=== PATIENT | male | born 1950 | race Caucasian/White ===

== ENCOUNTER 2020-04-03 07:42 | Outpatient (CLI) | payer MEDICARE, SELFPAY ==
--- NOTE | ~2020-04-03 | MR_ITS ---
EXAMINATION: MR lumbar spine wo con DATE: 04/03/2020 08:54 INDICATION: Lumbar radiculopathy. TECHNIQUE: Magnetic resonance imaging (MRI) of the lumbar spine was performed without intravenous con trast. Sequences included sagittal T2-weighted FSE, sagittal T2-weighted FS FSE, sagittal T1-weighted FSE, and axial T2-weighted FSE. COMPARISON: Lumbar spine MRI 08/04/2017 FINDINGS: There is 7 degrees levocurvature of lumbar spine. Vertebral body heights are normal. There is mildly decreased disc height at L2-L3, moderately decreased disc height at L3-L4, severely decreas ed disc height at L4-L5, and mildly decreased disc height at L5-S1. Epidural lipomatosis is noted. Th ere is ligamentum flavum hypertrophy at the disc levels from L2-L3 through L5-S1. The distal spinal c ord signal intensity is normal. The conus medullaris is at L1. There are peripelvic cysts in left kid marcia. The following disc levels are specifically discussed: L1-L2: The disc is bulging and has an annular fissure. There is moderate bilateral facet joint osteoa rthritis. There is mild bilateral neural foraminal stenosis. There is mild central canal stenosis. L2-L3: The disc is bulging and has an annular fissure. There is severe bilateral facet joint osteoart hritis. There is moderate bilateral neural foraminal stenosis. There is moderate central canal stenos is. L3-L4: The disc is bulging and has an annular fissure. There is severe bilateral facet joint osteoart hritis. There is moderate bilateral neural foraminal stenosis. There is severe central canal stenosis . L4-L5: The disc is bulging and has an annular fissure. There is severe bilateral facet joint osteoart hritis. There is moderate bilateral neural foraminal stenosis. There is mild central canal stenosis. L5-S1: The disc is bulging and has an annular fissure. There is severe bilateral facet joint osteoart hritis. There is mild bilateral neural foraminal stenosis. There is mild central canal stenosis. IMPRESSION: 1. Severe lumbar spondylosis, stable from 08/04/2017 Reviewed, dictated and finalized at location A.
== END 2020-04-03 07:43 | disposition home or self-care (01) ==
PROVIDERS: PCP Internal Medicine
DX: M47.26 Other spondylosis with radiculopathy, lumbar region (principal)
CPT/HCPCS: 72148

== ENCOUNTER 2020-05-07 08:26 | Outpatient (CLI) | payer MEDICARE, SELFPAY ==
--- NOTE | ~2020-05-07 | CT_ITS ---
EXAMINATION: CT lumbar spine wo con DATE: 05/07/2020 08:52 INDICATION: Lumbar radiculopathy. TECHNIQUE: Computed tomography (CT) of the lumbar spine was performed without intravenous contrast. A utomated exposure control and iterative reconstruction technique were employed. The dose-length produ ct was 1302.41 mGy-cm. COMPARISON: Lumbar spine MRI 04/03/2020 FINDINGS: There is 4 degrees levocurvature of lumbar spine. Vertebral body heights are normal. There is mildly decreased disc height at L2-L3, moderately decreased disc height at L3-L4, severely decreas ed disc height at L4-L5, and moderately decreased disc height at L5-S1. There is a 3.2 cm fusiform an eurysm of infrarenal aorta. The following disc levels are specifically discussed: L1-L2: The disc is bulging. There is moderate right and severe left facet joint osteoarthritis. There is mild bilateral neural foraminal stenosis. There is mild central canal stenosis. L2-L3: The disc is bulging. There is severe bilateral facet joint osteoarthritis. There is moderate b ilateral neural foraminal stenosis. There is moderate central canal stenosis. L3-L4: The disc is bulging. There is severe bilateral facet joint osteoarthritis. There is moderate b ilateral neural foraminal stenosis. There is severe central canal stenosis. L4-L5: The disc is bulging. There is severe bilateral facet joint osteoarthritis. There is moderate b ilateral neural foraminal stenosis. There is mild central canal stenosis. L5-S1: The disc is bulging. There is severe bilateral facet joint osteoarthritis. There is mild bilat eral neural foraminal stenosis. There is mild central canal stenosis. IMPRESSION: 1. Stable severe lumbar spondylosis. 2. 3.2 cm fusiform aneurysm of infrarenal aorta. Reviewed, dictated and finalized at location A.
== END 2020-05-07 08:27 | disposition home or self-care (01) ==
PROVIDERS: PCP Internal Medicine
DX: M47.26 Other spondylosis with radiculopathy, lumbar region (principal); I70.1 Atherosclerosis of renal artery
CPT/HCPCS: 72131

== ENCOUNTER 2020-11-28 08:51 | Outpatient (CLI) | payer MEDICARE, SELFPAY ==
--- NOTE | ~2020-11-28 | DEXA_ITS ---
Bone Density Report Name: Mega Fairchild Age: 70 Sex: Male Ethnicity: White Date of : 1950 Indication: height loss; Referring Provider: Gabriel*Kory Vallejo Study: Bone densitometry was performed. Exam Date: November 28, 2020 Accession number: [id number] Bone Density: Region BMD T-score Z-score Classification AP Spine (L1, L2) 1.173 1.1 2.0 Normal Femoral Neck (Left) 0.867 -0.5 0.8 Normal Total Hip (Left) 1.174 0.9 1.7 Normal Total Hip Bilateral Avg 1.141 0.7 1.5 Normal Femoral Neck (Right) 0.821 -0.8 0.4 Normal Total Hip (Right) 1.107 0.5 1.2 Normal World Health Organization criteria for BMD impression classify patients as: Normal (T-score at or above -1.0), Osteopenia (T-score between -1.0 and -2.5), or Osteoporosis (T-score at or below -2.5). 10-year Fracture Risk: FRAX not reported because: All T-scores for Spine Total, Hip Total, Femoral Neck at or above -1.0 Previous Exams: Region Exam Age BMD T-score BMD Change BMD Change Date g/cm2 vs Baseline vs Previous AP Spine(L1, L2) 11/28/2020 70 1.173 1.1 0.091(8.4%)* 0.091(8.4%)* 11/03/2018 68 1.082 0.3 Total Hip(Left) 11/28/2020 70 1.174 0.9 0.030(2.6%)* 0.030(2.6%)* 11/03/2018 68 1.144 0.7 Total Hip(Right) 11/28/2020 70 1.107 0.5 0.000(0.0%) 0.000(0.0%) 11/03/2018 68 1.107 0.5 *Denotes significance at 95% confidence level, LSC for AP Spine = 0.022 g/cm2, LSC for Total Hip = 0.027 g/cm2 Clinical Information Provided by Patient: Patient maximum height was 70 No regular weight bearing exercise Drinks caffeinated beverages Impression: The patient has normal bone mass. No significant bone loss was observed. Discussion: BONE DENSITY IS ABOVE THE MINIMUM DESIRABLE LEVEL AT ALL SKELETAL SITES TESTED. This patient?s bone mineral density is above the minimum desirable level (T-score -1.0 or better) at all sites measured. The patient should follow a healthful lifestyle (good nutrition with adequate calcium and vitamin D, and appropriate weight-bearing exercise). Follow-Up: Consider repeating this study in 5 years or sooner if there is some new clinical indication. Reported by: SILVERIO on 11/28/2020 9:16:00 AM. Reviewed, dictated and finalized at location Alondra RAMIREZ
== END 2020-11-28 08:52 | disposition home or self-care (01) ==
LOC: ANHIMG 08:53
PROVIDERS: PCP Internal Medicine; Visit Provider Neurological Surgery
DX: M81.0 Age-related osteoporosis without current pathological fracture (principal)
CPT/HCPCS: 77080

== ENCOUNTER 2021-04-12 08:03 | Emergency (ER) | payer MEDICARE, SELFPAY ==
[2021-04-12 08:15] VITALS: BP 125/74; PULSE 73; RESP 18; TEMP 36.8; O2SAT 100
[2021-04-12 08:17] VITALS: BP 125/74; PULSE 73; RESP 18; TEMP 36.8; O2SAT 100
[2021-04-12] MEDS: predniSONE 20 MG TABLET 60 MG PO (08:31)
--- NOTE | 2021-04-12 08:31 | ED.SKABFB ---
HPI - Skin/Abscess/Foreign Bdy General Chief complaint: Skin/Abscess/Foreign Body Stated complaint: Swollen Hand Source: patient and RN notes reviewed Limitations: no limitations History of Present Illness HPI narrative: The patient, on several meds, presents with insect bite. Patient states he has a prior history of strong reactions to stings. He now has a shorter, couple day history of right, extensor hand redness and swelling that is mild, unrelieved with OTC Benadryl, that began after witnessed wasp sting. No redness, streaking, warmth, pain-but there is itching Related Data Home Medications Medication Instructions Recorded Confirmed omega-3 fatty acids 1,000 mg 1,000 mg PO DAILY 03/15/20 04/12/21 capsule zinc 50 mg tablet 50 mg PO DAILY 03/15/20 04/12/21 gabapentin 300 mg capsule 300 mg PO TID 03/27/20 04/12/21 tizanidine 2 mg capsule 2 mg PO TID 03/27/20 04/12/21 cholecalciferol (vitamin D3) 25 25 mcg PO DAILY 03/10/21 04/12/21 mcg (1,000 unit) capsule multivitamin 1 tablet PO DAILY 03/10/21 04/12/21 Allergies Allergy/AdvReac Type Severity Reaction Status Date / Time Penicillins Allergy Mild Rash Verified 04/12/21 08:14 Review of Systems Review of Systems: Narrative: General/Constitutional: No weight loss,fever Eyes: N0: Redness,discharge Ears/Nose/Throat: No: Epistaxis,ear discharge Respiratory: Denies: Hemoptysis Gastrointestinal: No Vomiting, Bleeding-rectal Skin: No Lumps REPORTS , eruption Neurologic: No Focal Weakness,Sz Hematologic: Denies: Petechiae/Purpura Psychiatric: No: Suicida ideationl All Other Systems: Reviewed and Negative [facility] Past Medical History Medical History Cataract (lens) fragments in eye following cataract surgery, bilateral Surgical History Surgical History Previous back surgery Family History Family History Father Patient's father is Social History Social History (Reviewed 03/10/21 @ 16:32 by SHANDA Mitchell Smoking status: Former smoker Second hand tobacco smoke exposure: No Smoking end date: 11/01/81 Alcohol intake: current Substance use: never Comments At time of signature, agree with nursing past medical, surgical, social and family history. There is no relevant family history pertinent to the presenting complaint. Exam Narrative: Exam Narrative: General Appearance: Well appearing, Conjunctiva clear Mouth/Throat: Normal appearing, Normal lips, Supple Respiratory: Airway patent, No respiratory distress Skin: Warm, Dry,; pink [not red], inflamed [not infected] extensor hand, with small puncta/ bite on extensor index finger proximally MS-hand: Normal strength (mostly intact, limited flexion/extension by edema, no tenderness ( extensor, with mild decreased ROM), Swelling (extensor), Other (no anterior drawer) Neurological: A&O x3, Normal affect Course Vital Signs Vital signs: Vital Signs Temperature 98.2 F 04/12/21 08:15 Pulse Rate 73 04/12/21 08:15 Respiratory Rate 18 04/12/21 08:15 Blood Pressure 125/74 04/12/21 08:15 Pulse Oximetry 100 04/12/21 08:15 Temperature 98.2 F 04/12/21 08:17 Pulse Rate 73 04/12/21 08:17 Respiratory Rate 18 04/12/21 08:17 Blood Pressure 125/74 04/12/21 08:17 Pulse Oximetry 100 04/12/21 08:17 Discharge Plan Discharge Clinical Impression: Pruritic condition Insect bite Qualifiers: Encounter type: initial encounter Site of insect bite: hand Laterality: left Qualified Code(s): S60.562A - Insect bite (nonvenomous) of left hand, initial encounter Patient Disposition: Home, Self-Care Condition: Stable Instructions: Insect Bite or Sting (ED) Additional Instructions: Stop meds, antibiotics if rash develops Prescriptions: New loratadine [Claritin]
[2021-04-12] MEDS: TETANUS,DIPHTHERIA,AC PERTUSSIS ADULT (0.5 ML) BOOSTRIX IM (08:40)
== END 2021-04-12 08:51 | disposition home or self-care (01) ==
PROVIDERS: Emergency Provider Emergency Medicine; PCP Internal Medicine
DX: S60.562A Insect bite (nonvenomous) of left hand, initial encounter (principal); W57.XXXA Bitten or stung by nonvenomous insect and other nonvenomous arthropods, initial encounter; Z87.891 Personal history of nicotine dependence; L29.9 Pruritus, unspecified
CPT/HCPCS: 90471; 90715; 99213; G0463; J7512

== ENCOUNTER 2021-06-27 10:00 | Outpatient (CLI) | payer MEDICARE, SELFPAY ==
[2021-06-27 10:36] LABS: Add Urine Microscopic? NO; Appearance Urine Clear (Clear); Bilirubin Urine Negative (Negative); Blood Urine Negative (Negative); Color Urine Yellow (Yellow); Glucose Urine UA Negative (Negative); Ketones Urine Negative (Negative); Leukocyte Esterase Ur Negative LEU/UL (Negative); Nitrate Urine Negative (Negative); Protein Urine Negative (Negative); Urobilinogen Urine Negative mg/dL (<2.0)
== END 2021-06-27 10:01 | disposition home or self-care (01) ==
PROVIDERS: PCP Internal Medicine; Visit Provider Internal Medicine
DX: R39.11 Hesitancy of micturition (principal)
CPT/HCPCS: 81003

== ENCOUNTER → 2021-07-03 05:06 | Outpatient (CLI) | payer MEDICARE, SELFPAY ==
[2021-07-03 19:18] LABS: SARS-CoV-2 RNA PCR Negative
== END ==
PROVIDERS: PCP Internal Medicine; Visit Provider Internal Medicine
DX: Z20.822 Contact with and (suspected) exposure to COVID-19 (principal)
CPT/HCPCS: C9803; U0003; U0005

== ENCOUNTER → 2022-01-16 04:59 | Outpatient (CLI) | payer MEDICARE, SELFPAY ==
[2022-01-16 12:52] LABS: SARS-CoV-2 RNA PCR Negative
== END ==
PROVIDERS: PCP Internal Medicine; Visit Provider Physician Assistant
DX: R68.89 Other general symptoms and signs (principal); Z20.822 Contact with and (suspected) exposure to COVID-19
CPT/HCPCS: C9803; U0003; U0005

== ENCOUNTER 2022-05-07 07:48 | Outpatient (CLI) | payer MEDICARE, SELFPAY ==
--- NOTE | ~2022-05-07 | US_ITS ---
EXAMINATION: US abdomen complete DATE: 05/07/2022 09:00 INDICATION: Unspecified abdominal pain TECHNIQUE: Multiple grayscale and Doppler ultrasound images of the abdomen were obtained. COMPARISON: 01/31/2018 FINDINGS: The head and body of the pancreas are normal. The pancreatic tail is obscured by bowel gas. The liver demonstrates increased echogenicity, heterogenous echotexture, and decreased through trans mission. There is a 2.2 cm cyst of the liver. No surface nodularity. Normal hepatopetal flow in the m ain portal vein. The gallbladder is normal with no abnormal wall thickening, pericholecystic fluid or stones. The normal common bile duct measures 6 mm. There was no sonographic Day sign. The visuali zed portions of the inferior vena cava are normal. There is a 3.1 cm fusiform aneurysm of the infrare nal abdominal aorta. The right kidney measures 14.0 x 6.1 x 6.1 cm. The left kidney measures 13.1 x 4.9 x 4.8 cm. The kidn eys demonstrate normal parenchymal echogenicity. There is no hydronephrosis. The spleen is normal in appearance and measures 11.9 cm. IMPRESSION: 1. No sonographic correlate for the patient's symptoms. 2. 3.1 cm fusiform infrarenal abdominal aortic aneurysm. Reviewed, dictated and finalized at location B.
== END 2022-05-07 07:49 | disposition home or self-care (01) ==
PROVIDERS: PCP Internal Medicine; Visit Provider Internal Medicine
DX: R10.9 Unspecified abdominal pain (principal); I71.4 Abdominal aortic aneurysm, without rupture
CPT/HCPCS: 76700

== ENCOUNTER 2022-09-30 08:12 | Outpatient (CLI) | payer MEDICARE, SELFPAY ==
--- NOTE | ~2022-09-30 | NM_ITS ---
EXAMINATION: NM lauren stress w perfusion DATE: 09/30/2022 11:20 [employer]ADCASTING [employer]CH[employer]IC INDICATION: History of coronary artery disease. TECHNIQUE: Rest images were obtained following intravenous administration of 10.5 mCi Tc99m tetrofosm in (Myoview). The patient was infused intravenously with Lexiscan (regadenoson). Then, 32.8 mCi Tc99m tetrofosmin (Myoview) was administered intravenously, and stress images were obtained. Data was jenny nstructed into short axis and horizontal and vertical long axis SPECT images. Gated SPECT images were also obtained. COMPARISON: None. FINDINGS: There is no definite reversible or fixed perfusion abnormality to suggest ischemia or infar ction. There is no segmental wall motion abnormality. Left ventricular ejection fraction measures 5 8%. IMPRESSION: 1. No definite ischemia or infarct. 2. Mildly decreased left ventricular ejection fraction measuring 58%. Reviewed, dictated and finalized at location A. 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
--- NOTE | 2022-09-30 09:23 | EST_ITS ---
Patient Info Name: Mega Fairchild Age: 72 years : 1950 Gender: Male Ht: 70 in Wt: 245 lbs BSA: 2.38 m2 Exam Date: 09/30/2022 9:28 AM Exam Location: [facility] Stress Patient Status: Outpatient Admit Date: 09/30/2022 Staff Ordering Physician: Agustin Tamayo DO Attending Provider: Agustin Tamayo DO Exercise Technologist: Abram Day RDCS, RT Exercise Physician: Christopher Hernandez DO Exam Type: CA stress lauren w NM Study Info A regadenoson stress test was performed. Summary 1. 1. Negative lexiscan stress test for ischemic ST changes by ECG criteria. 2. 2. Stable hemodynamics throughout the test. 3. 3. Nuclear scan to follow and will be reported separately. Please correlate with it. 4. 4. Patient informed of the above results. Protocol: Lexiscan Stress ECG Details Stage: REST Duration (min): 1 min : 16 sec HR (bpm): 59 SBP (mmHg): 106 DBP (mmHg): 67 Stage: REST Duration (min): 11 min : 21 sec HR (bpm): 62 SBP (mmHg): 106 DBP (mmHg): 67 Stage: STAGE 1 Duration (min): 1 min : 0 sec HR (bpm): 64 SBP (mmHg): 124 DBP (mmHg): 82 Stage: RECOVERY Duration (min): 1 min : 0 sec HR (bpm): 78 SBP (mmHg): 124 DBP (mmHg): 82 Stage: RECOVERY Duration (min): 2 min : 0 sec HR (bpm): 72 SBP (mmHg): 124 DBP (mmHg): 82 Stage: RECOVERY Duration (min): 3 min : 0 sec HR (bpm): 72 SBP (mmHg): 114 DBP (mmHg): 76 Stage: RECOVERY Duration (min): 3 min : 15 sec HR (bpm): 72 SBP (mmHg): 114 DBP (mmHg): 76 Rest HR: 62 bpm Peak HR: 79 bpm Rest Sys BP: 106 mmHg Peak Sys BP: 124 mmHg Max Pred HR: 146 bpm % Max Pred HR: 54 % Target HR: 124 bpm Max RPP: 9,796 bpm*mmHg Termination Reason: Completed protocol Cardiac Symptoms: Shortness of breath Total Time: 1 min : 0 sec Rest Olguin BP: 67 mmHg Peak Olguin BP: 82 mmHg Total Dose: 0.4 mg Resting ECG Sinus rhythm, RBBB. Stress ECG No ST changes. Arrhythmias None. Report Signatures
== END 2022-09-30 08:13 | disposition home or self-care (01) ==
PROVIDERS: PCP Internal Medicine; Visit Provider Internal Medicine
DX: Z01.810 Encounter for preprocedural cardiovascular examination (principal); Z86.79 Personal history of other diseases of the circulatory system
CPT/HCPCS: 78452; 93017; A9502; J2785

== ENCOUNTER 2023-01-04 00:18 | Day surgery (SDC) | payer MEDICARE, SELFPAY ==
[2022-12-23 13:33] VITALS: BMI 35.2
[2023-01-04 09:26] VITALS: BP 149/89; PULSE 80; RESP 18; TEMP 36.6; O2SAT 97; BMI 36.9
--- NOTE | 2023-01-04 09:35 | WPDANESEPPF ---
Anes - Initial Pre Proc Eval Procedure: Operation Date: 01/04/23 10:30 Proposed Procedures p Screening Colonoscopy - Jhony Marvin MD Date/Time: 01/04/23 09:35 Surgeon: Jhony Marvin MD Pre Op Diagnosis: hx colon polyps Patient Data Age: 72 Gender: M Height: 1.78 m Weight: 116.7 kg Last Vital Signs Temp 36.6 C 01/04/23 09:26 Pulse 80 01/04/23 09:26 Resp 18 01/04/23 09:26 BP 149/89 H 01/04/23 09:26 Pulse Ox 97 01/04/23 09:26 O2 Del Method Room Air 01/04/23 09:26 Allergies Allergy/AdvReac Type Severity Reaction Status Date / Time Penicillins Allergy Mild Rash Verified 01/04/23 09:24 Home Medications Medication Instructions Recorded Confirmed Type omega-3 fatty acids 1,000 mg 1,000 mg PO DAILY 03/15/20 01/04/23 History capsule (Fish Oil Concentrate) zinc 50 mg tablet 50 mg PO DAILY 03/15/20 01/04/23 History tizanidine 2 mg capsule 2 mg PO DAILY 03/27/20 01/04/23 History cholecalciferol (vitamin D3) 25 25 mcg PO DAILY 03/10/21 01/04/23 History mcg (1,000 unit) capsule multivitamin 1 tablet PO DAILY 03/10/21 01/04/23 History nitroglycerin 0.4 mg sublingual 0.4 mg sublingual Q5M PRN chest 03/10/21 01/04/23 Rx tablet (Nitrostat) pain #30 tabs simvastatin 40 mg tablet 40 mg PO DAILY #90 tabs 08/20/22 01/04/23 Rx aspirin 81 mg tablet,delayed 81 mg PO DAILY 10/21/22 01/04/23 History release (Adult Low Dose Aspirin) pantoprazole 40 mg tablet,delayed 40 mg PO QAM #90 tabs 11/18/22 01/04/23 Rx release (Protonix) metoprolol tartrate 25 mg tablet 25 mg PO BID #180 tabs 12/02/22 01/04/23 Rx Patient hx anesthesia problems: none Family hx anesthesia problems: none Results Review: All pre-operative results and documents have been reviewed as part of the pre-operative evaluation. [facility] Past Medical History Medical History (Updated 01/04/23 @ 09:38 by Miguel Ángel Romero MD) AAA (abdominal aortic aneurysm) Cataract (lens) fragments in eye following cataract surgery, bilateral Hx of myocardial infarction Obesity, Class II, BMI 35-39.9 Pure hypercholesterolemia Surgical History Surgical History Previous back surgery Family History Family History Father Patient's father is Social History Social History (Updated 10/21/22 @ 09:16 by Anisa Napier MA) Smoking status: Never smoker Second hand tobacco smoke exposure: No Smoking end date: 11/01/81 Alcohol intake: current Drinks per week: 10 Substance use: never Substance use type: does not use Lack of Transportation: No Lack of Food: Never True Current Housing: I Have Housing Concerned About Future Housing: No Difficulty Paying Gas/Electric Bills: No Difficulty Paying for Meds: No Currently Unemployed: No Education: Trade/Vocational Certificate Difficulty w/ Childcare or Family Care: No Living arrangements: with family Anes - Eval Final PreProcedure Day of Procedure 01/04/23 09:35 Patient weight: obese Heart: regular rate and rhythm Lungs: clear to auscultation and normal air movement Airway: Mallampati scale class II Neurological: alert and oriented Last oral intake: >/= 8 hours ASA classification: III Emergent: no Anesthetic plan: proceed Anesthesia type and monitoring: general GIVS Results Review: All pre-operative results and documents have been reviewed as part of the pre-operative evaluation. Informed Consent: The patient's anesthetic plan and its attendant risks and benefits were discussed with the patient/family/POA. Questions were solicited and answers provided to the satisfaction of the patient/family/POA.
[2023-01-04] MEDS: LACTATED RINGERS 1,000 ML 150 ML IV CONT (09:37)
--- NOTE | 2023-01-04 10:08 | PM.HPGS ---
History of Present Illness History of Present Illness Consent: Risks, benefits, and alternatives have been discussed and questions answered. Patient agrees to proceed with procedure. Chief complaint: hx colon polyps Narrative: Mega Fairchild is a 72 year old male Presents for screening colonoscopy. Patient has a history of adenomatous colon polyps in several previous exams. Most recent colonoscopy 2018. Patient reports that his current weight appetite and bowel movements are normal. Patient denies abdominal pain. He has had no bleeding. Family history is noncontributory. Review of Systems Review of Systems: Review of systems noncontributory. [facility] Past Medical History Medical History (Updated 01/04/23 @ 10:09 by Jhony Marvin MD) AAA (abdominal aortic aneurysm) Cataract (lens) fragments in eye following cataract surgery, bilateral Hx of myocardial infarction Obesity, Class II, BMI 35-39.9 Pure hypercholesterolemia Surgical History Surgical History Previous back surgery Family History Family History Father Patient's father is Social History Social History (Updated 10/21/22 @ 09:16 by Anisa Napier MA) Smoking status: Never smoker Second hand tobacco smoke exposure: No Smoking end date: 11/01/81 Alcohol intake: current Drinks per week: 10 Substance use: never Substance use type: does not use Lack of Transportation: No Lack of Food: Never True Current Housing: I Have Housing Concerned About Future Housing: No Difficulty Paying Gas/Electric Bills: No Difficulty Paying for Meds: No Currently Unemployed: No Education: Trade/Vocational Certificate Difficulty w/ Childcare or Family Care: No Living arrangements: with family Meds Home Medications and Allergies Home Medications Medication Instructions Recorded Confirmed Type omega-3 fatty acids 1,000 mg 1,000 mg PO DAILY 03/15/20 01/04/23 History capsule (Fish Oil Concentrate) zinc 50 mg tablet 50 mg PO DAILY 03/15/20 01/04/23 History tizanidine 2 mg capsule 2 mg PO DAILY 03/27/20 01/04/23 History cholecalciferol (vitamin D3) 25 25 mcg PO DAILY 03/10/21 01/04/23 History mcg (1,000 unit) capsule multivitamin 1 tablet PO DAILY 03/10/21 01/04/23 History nitroglycerin 0.4 mg sublingual 0.4 mg sublingual Q5M PRN chest 03/10/21 01/04/23 Rx tablet (Nitrostat) pain #30 tabs simvastatin 40 mg tablet 40 mg PO DAILY #90 tabs 08/20/22 01/04/23 Rx aspirin 81 mg tablet,delayed 81 mg PO DAILY 10/21/22 01/04/23 History release (Adult Low Dose Aspirin) pantoprazole 40 mg tablet,delayed 40 mg PO QAM #90 tabs 11/18/22 01/04/23 Rx release (Protonix) metoprolol tartrate 25 mg tablet 25 mg PO BID #180 tabs 12/02/22 01/04/23 Rx Allergies Allergy/AdvReac Type Severity Reaction Status Date / Time Penicillins Allergy Mild Rash Verified 01/04/23 09:24 Vital Signs Vital Signs - 24 hr 01/04/23 09:26 Temperature 97.8 F Pulse Rate 80 Respiratory Rate 18 Blood Pressure 149/89 H Pulse Oximetry 97 Oxygen Delivery Room Air Exam Narrative: Physical exam reveals patient to be alert. Vital signs stable. HEENT exam is unremarkable. Patient is anicteric. Lungs are clear to auscultation and percussion. Heart is without murmur or extra sounds. Abdomen bowel sounds are present soft nontender with no organomegaly. Digital external rectal exam is normal. Assessment and Plan Assessment and plan (1) History of colon polyps: Code(s): Z86.010 - Personal history of colonic polyps Status: Acute Assessment and Plan: Patient has had a history of colon polyps in the past. Plan for surveillance colonoscopy now and consider this at 5 year intervals in the future.
[2023-01-04 10:45] VITALS: BP 128/80; PULSE 76; RESP 17; O2SAT 95
[2023-01-04 10:55] VITALS: BP 106/69; PULSE 66; RESP 15; O2SAT 94
[2023-01-04 11:05] VITALS: BP 149/92; PULSE 74; RESP 15; O2SAT 95
== END 2023-01-04 11:16 | disposition home or self-care (01) ==
PROVIDERS: PCP Internal Medicine; Visit Provider Internal Medicine Gastroenterology
PROC: 0DJD8ZZ Inspection of Lower Intestinal Tract, Via Natural or Artificial Opening Endoscopic (ICD-10-PCS; CPT 45378; principal; 2023-01-04 10:30)
DX: Z12.11 Encounter for screening for malignant neoplasm of colon (principal); D12.0 Benign neoplasm of cecum; K64.8 Other hemorrhoids; K57.30 Diverticulosis of large intestine without perforation or abscess without bleeding; Z79.82 Long term (current) use of aspirin; I25.2 Old myocardial infarction; E78.00 Pure hypercholesterolemia, unspecified; I71.40 Abdominal aortic aneurysm, without rupture, unspecified; E66.9 Obesity, unspecified; Z68.36 Body mass index [BMI] 36.0-36.9, adult
CPT/HCPCS: 45385; 88305; J2704; J7120

== ENCOUNTER 2023-11-09 08:54 | Outpatient (CLI) | payer MEDICARE, SELFPAY | END 2023-11-09 08:55 | disposition home or self-care (01) | LOC: ANHAUDIO 08:55 | PROVIDERS: PCP Internal Medicine; Visit Provider Otolaryngology | DX: H90.3 Sensorineural hearing loss, bilateral (principal) | CPT/HCPCS: 92557; 92567 ==

== ENCOUNTER 2024-03-29 14:30 | Outpatient (RCR) | payer MEDICARE, SELFPAY ==
[2024-02-15 10:52] VITALS: BMI 36.9
[2024-02-17 13:26] VITALS: BMI 37.8
[2024-02-17 14:31] VITALS: BMI 37.8
== END 2024-05-08 10:29 | disposition home or self-care (01) ==
LOC: ANHDMC 14:30
PROVIDERS: PCP Internal Medicine; Visit Provider Internal Medicine
DX: E11.9 Type 2 diabetes mellitus without complications (principal); Z71.89 Other specified counseling; Z71.3 Dietary counseling and surveillance
CPT/HCPCS: 97802; G0108; G0109

== ENCOUNTER 2024-05-31 15:02 | Emergency (ER) | payer MEDICARE, SELFPAY ==
--- NOTE | ~2024-05-31 | CT_ITS ---
EXAMINATION: CT brain wo con DATE: 05/31/2024 17:15 INDICATION: Dizziness TECHNIQUE: Computed tomography (CT) of the head was performed without intravenous contrast. Sagittal and coronal reconstructions were performed. The mA was adjusted according to patient size. Iterative reconstruction technique was employed. The dose-length product was 1362.00 mGy-cm. COMPARISON: None FINDINGS: No acute intracranial hemorrhage, acute infarction or abnormal extra axial fluid collection. There is mild scattered white matter hypoattenuation consistent with chronic small vessel ischemic disease. Ventricles are normal and symmetric. No mass/mass effect. Changes of bilateral intraocular lens repla cement. The orbits, paranasal sinuses and mastoid air cells are normal. IMPRESSION: 1. Normal aging brain with mild scattered white matter hypoattenuation consistent with chronic small vessel ischemic disease. Reviewed, dictated and finalized at location A. IMPRESSION: 1. Normal aging brain with mild scattered white matter hypoattenuation consiste nt with chronic small vessel ischemic disease.
[2024-05-31 15:11] VITALS: BP 123/73; PULSE 66; RESP 18; TEMP 36.6; O2SAT 96
--- NOTE | 2024-05-31 16:47 | ED.DIZZY ---
HPI - Dizziness General Chief Complaint: Dizziness <ROSSY Glass Last Filed: 05/31/24 17:02> Stated Complaint: dizzy x few days <ROSSY Glass Last Filed: 05/31/24 17:02> Time Seen by Provider: 05/31/24 16:48 <ROSSY Glass Last Filed: 05/31/24 17:02> Focused HPI: Patient is a 73 y/o male who presents to the ED with c/o dizziness. Patient reports having intermittent episodes of dizziness since Wednesday night. [place] as though room was spinning, like he was going to fall out of bed. Worse with position changes, turning head. Has also felt lightheaded and near syncopal at times. Denies losing consciousness. Denies dizziness currently. Reports intermittent blurry vision associated with the dizziness episodes, denies vision changes currently. Denies focal weakness or numbness, aphasia, CP, SOB, YIN. does note patient may have had brief episode of slurred speech this morning. GENERAL: Well-appearing, obese with BMI of 34.5, and in no acute distress. HEAD: Normocephalic, atraumatic. EYES: PERRL/EOMI ENT: TMs clear. Minimal cerumen in canals, no impaction. CHEST: Clear to auscultation. ?No respiratory distress. HEART: Regular rate and rhythm.? NEURO: ?Alert and oriented x3. Strength 5/5 in upper and lower extremities bilaterally. No pronator drift. Equal environmental lead strength. Patient screened in triage and initial orders placed.? ?Additional care and disposition to be based upon?diagnostic testing and treatment. <ROSSY Glass Last Filed: 05/31/24 17:02> Source: patient <ROSSY Glass Last Filed: 05/31/24 17:02> Mode of arrival: ambulatory <ROSSY Glass Last Filed: 05/31/24 17:02> Limitations: no limitations <ROSSY Glass Last Filed: 05/31/24 17:02> Related Data Home Medications: Home Medications Medication Instructions Recorded Confirmed zinc 50 mg tablet 50 mg PO DAILY 03/15/20 09/30/23 tizanidine 2 mg capsule 2 mg PO DAILY 03/27/20 09/30/23 cholecalciferol (vitamin D3) 25 25 mcg PO DAILY 03/10/21 09/30/23 mcg (1,000 unit) capsule multivitamin 1 tablet PO DAILY 03/10/21 09/30/23 aspirin 81 mg tablet,delayed 81 mg PO DAILY 10/21/22 09/30/23 release (Adult Low Dose Aspirin) magnesium 200 mg tablet 200 mg PO DAILY 01/28/24 <Kathy Gallagher PA-C - Last Filed: 05/31/24 17:02> Allergies/Adverse Reactions: Allergies Allergy/AdvReac Type Severity Reaction Status Date / Time Penicillins Allergy Mild Rash Verified 01/28/24 08:07 <ROSSY Glass Last Filed: 05/31/24 17:02> [facility] Past Medical History Medical History: Medical History AAA (abdominal aortic aneurysm) Cataract (lens) fragments in eye following cataract surgery, bilateral Hx of myocardial infarction Obesity, Class II, BMI 35-39.9 Pure hypercholesterolemia <Kathy Gallagher PA-C - Last Filed: 05/31/24 17:02> Surgical History Surgical History: Surgical History Previous back surgery <Kathy Gallagher PA-C - Last Filed: 05/31/24 17:02> Family History Family History: Family History Father Patient's father is <ROSSY Glass Last Filed: 05/31/24 17:02> Social History Social History: Social History (Updated 09/30/23 @ 10:15 by Miracle Lugo) Social History: Caffeine-coffee/soda Smoking status: Never smoker Second hand tobacco smoke exposure: No Smoking end date: 11/01/81 Alcohol intake: current Drinks per week: 10 Substance use: never Substance use type: does not use Lack of Transportation: No Lack of Food: Never True Current Housing: I Have Housing Concerned About Future Housing: No Difficulty Paying Gas/Electric Bills: No Difficulty Paying for
--- NOTE | 2024-05-31 16:50 | ECG_ITS ---
Test Date: 2024-05-31 16:59:59 Measurements Intervals Van Rate: 61 P: 0 [place]: 195 QRS: 64 QRSD: 144 T: 50 QT: 467 QTc: 472 Interpretive Statements SINUS RHYTHM RIGHT BUNDLE BRANCH BLOCK BASELINE ARTIFACT- I, II, III, AVR, AVL, AVF ABNORMAL ECG No previous ECG available for comparison Electronically Signed On 05-31-2024 20:35:39 CDT by Christopher Hernandez D.O.
[2024-05-31] MEDS: MECLIZINE HCL 25 MG TABLET PO (17:07)
[2024-05-31 17:12] LABS: Basophils Percent Auto 0.4 % (0.2-1.2); Eosinophils Absolute Auto 0.2 K/mm3 (0-0.3); Hematocrit 45.3 % (42.0-52.0); Hemoglobin 15.1 g/dL (14.0-18.0); Immature Granulocyte Absolute 0.01 K/mm3 (0.00-0.031); Immature Granulocyte Percent A 0.1 % (0-0.5); Lymphocytes Absolute Auto 2.23 K/mm3 (0.9-3.2); Lymphocytes Percent Auto 30.1 % (18.3-44.2); Mean Corpuscular HGB Conc 33.3 g/dl (32-36); Mean Corpuscular Hemoglobin 32.1 pg (26-34); Mean Corpuscular Volume 96.4 fl (80-100); Mean Platelet Volume 9.9 fl (7.4-10.4); Monocytes Absolute Auto 0.8 K/mm3 (0.1-0.6); Monocytes Percent Auto 10.4 % (2.6-8.5); Neutrophils Absolute Auto 4.2 K/mm3 (1.3-6.7); Platelet Count Result 172 k/mm3 (150-375); Red Cell Distribution Width 13.4 % (11.5-14.5); White Blood Count 7.4 K/mm3 (4.5-10.0)
[2024-05-31 17:22] LABS: INR 1.1; Prothrombin Time 14.4 Seconds (11.1-14.7)
[2024-05-31 17:23] LABS: Alanine Aminotransferase 24 U/L (6-50); Albumin Level 4.5 g/dL (3.5-5.1); Alkaline Phosphatase 48 U/L (38-126); Anion Gap 10 mmol/L (4-12); Aspartate Amino Transferase 26 U/L (17-59); Bilirubin,Total 0.6 mg/dL (0.2-1.3); Blood Urea Nitrogen 22 mg/dL (9-20); Calcium 8.9 mg/dL (8.4-10.2); Carbon Dioxide 27 mmol/L (22-30); Chloride 101 mmol/L (98-107); Estimated CRCL calculation 77 ml/min; Estimated Glomerular Filt Rate > 60; Glucose 80 mg/dL (65-110); Potassium 4.1 mmol/L (3.4-5.0); Sodium 138 mmol/L (137-145)
[2024-05-31 17:24] LABS: Partial Thromboplastin Time 32.2 Seconds (22.3-36.8)
[2024-05-31 18:13] VITALS: PULSE 58; RESP 19
[2024-05-31 18:16] VITALS: BP 139/83; PULSE 57; RESP 17; O2SAT 96
[2024-05-31] MEDS: SCOPOLAMINE 1 MG PATCH 1 PATCH TRANSDERM (18:16)
[2024-05-31 18:17] VITALS: PULSE 55; RESP 12; O2SAT 96
[2024-05-31 18:27] LABS: Add Urine Microscopic? NO; Appearance Urine Clear (Clear); Bilirubin Urine Negative (Negative); Blood Urine Negative (Negative); Color Urine Yellow (Yellow); Glucose Urine UA Negative (Negative); Ketones Urine Negative (Negative); Leukocyte Esterase Ur Negative LEU/UL (Negative); Nitrate Urine Negative (Negative); Protein Urine Negative (Negative); Specific Grav Ur 1.019 (1.001-1.035)
== END 2024-05-31 19:20 | disposition home or self-care (01) ==
PROVIDERS: Physician Assistant; Emergency Provider Emergency Medicine; PCP Internal Medicine
DX: H81.10 Benign paroxysmal vertigo, unspecified ear (principal); R55 Syncope and collapse; I25.2 Old myocardial infarction; E78.00 Pure hypercholesterolemia, unspecified; E66.9 Obesity, unspecified; Z68.34 Body mass index [BMI] 34.0-34.9, adult; H59.023 Cataract (lens) fragments in eye following cataract surgery, bilateral; Z87.891 Personal history of nicotine dependence; Z79.82 Long term (current) use of aspirin; Z79.899 Other long term (current) drug therapy; I45.10 Unspecified right bundle-branch block
CPT/HCPCS: 36415; 70450; 80053; 81003; 85025; 85610; 85730; 93005; 99284; A9270

== ENCOUNTER 2024-08-08 10:59 | Outpatient (CLI) | payer MEDICARE, SELFPAY ==
--- NOTE | ~2024-08-08 | MR_ITS ---
MRI of the lumbar spine Clinical History: Radiculopathy Technique: Axial T2-weighted images, and sagittal T1-weighted, T2-weighted, and and T2 fat-sat images were acquired. COMPARISON: 04/03/2020 Findings: No acute fracture or subluxation seen. Vertebral bodies maintain normal height and alignmen t. No suspicious bone marrow signal abnormality seen. There are mild Modic changes in the lumbar spin e due to underlying degenerative disc disease. At L1-L2, there is mild degenerative change. There is diffuse disc bulge with moderate facet hypertro phy. No spinal canal stenosis. There is moderate left neural foraminal narrowing, and mild right neur al foraminal narrowing. At L2-L3, there is degenerative disc narrowing with diffuse disc bulge and severe facet arthropathy. There is posterior decompression. No spinal canal stenosis. There is severe bilateral neural foramina l narrowing, right worse than left. At L3-L4, there is advanced degenerative disc narrowing. There is disc bulge with severe facet arthro nelda. There is posterior decompression. No spinal canal stenosis. There is severe right neural miguel inal narrowing, and moderate to advanced left neural foraminal narrowing. At L4-L5, there is severe degenerative disc narrowing. There is disc bulge with severe facet arthropa thy and posterior decompression. No spinal canal stenosis. There is severe bilateral neural foraminal , otherwise, left worse than right. At L5-S1, there is moderate degenerative disc narrowing. There is diffuse disc bulge with severe face t arthropathy. No gala central canal stenosis. There is severe left neural foraminal narrowing, and moderate right neural foraminal narrowing. Paravertebral soft tissues are unremarkable aside from expected postoperative change. Impression: Advanced degenerative spondylosis, as detailed above. There is posterior decompression from L2 throug h L5. There is multilevel neural foraminal narrowing but no gala canal stenosis. Reviewed, dictated and finalized at location . Impression: Advanced degenerative spondylosis, as detailed above. There is posterior decomp ression from L2 through L5. There is multilevel neural foraminal narrowing but no gala canal stenosis.
== END 2024-08-08 11:00 | disposition home or self-care (01) ==
LOC: MICIMG 11:00
PROVIDERS: PCP Internal Medicine
DX: M47.816 Spondylosis without myelopathy or radiculopathy, lumbar region (principal); M47.817 Spondylosis without myelopathy or radiculopathy, lumbosacral region; M47.896 Other spondylosis, lumbar region; M47.897 Other spondylosis, lumbosacral region
CPT/HCPCS: 72148

== ENCOUNTER 2024-09-08 07:04 | Outpatient (CLI) | payer MEDICARE, SELFPAY ==
[2024-09-08 07:48] LABS: Alanine Aminotransferase 26 U/L (6-50); Alkaline Phosphatase 44 U/L (38-126); Anion Gap 5 mmol/L (4-12); Aspartate Amino Transferase 29 U/L (17-59); Bilirubin,Total 0.3 mg/dL (0.2-1.3); Blood Urea Nitrogen 19 mg/dL (9-20); Calcium 8.5 mg/dL (8.4-10.2); Carbon Dioxide 30 mmol/L (22-30); Chloride 106 mmol/L (98-107); Cholesterol 135 mg/dL (0-200); Estimated Glomerular Filt Rate > 60; Glucose 122 mg/dL (65-110); HDL Direct 37 mg/dL; Potassium 4.3 mmol/L (3.4-5.0); Sodium 141 mmol/L (137-145); Triglycerides 168 mg/dL (<150)
[2024-09-08 07:59] LABS: LDL Cholesterol Direct 63 mg/dL
== END 2024-09-08 07:05 | disposition home or self-care (01) ==
PROVIDERS: PCP Internal Medicine; Visit Provider Internal Medicine
DX: R73.9 Hyperglycemia, unspecified (principal); E78.5 Hyperlipidemia, unspecified
CPT/HCPCS: 36415; 80053; 80061; 83036

== ENCOUNTER 2025-07-12 08:31 | Outpatient (CLI) | payer MEDICARE, SELFPAY ==
--- OUTSIDE RECORDS SUMMARY | 2024-12-14 03:40 | XMS_ITS ---
Author Organization [facility] Address [address] [place], [place] [id number] Care Team Providers Care Tower Director Name Role Phone LENCHO LAYTON Unavailable [phone] Papa Espinoza Unavailable Unavailable REASON FOR VISIT *General care - will cb to rs Encounters Encounter Location Date Provider Diagnosis [facility] [address] [place], [place] [id number] 12/14/2024 LENCHO LAYTON Plan Of Treatment Next Appt Details Provider Name:LENCHO BARLOW, 09/06/2025 02:20:00 PM, [address], [place], [place], [id number], Progress Notes * CLAUDIA NOBLE KDOB:[birth year] (74 yo M)Acc No.[id number]:12/14/2024 Patient: CLAUDIA MACHADO Provider: Martin Layton DPM :1950 A ge:74 Y S ex:Male Date:12/14/2024 [facility] [facility] Subjective: * Chief Complaints: * 1 . *General care - will cb to rs. * Medical History: Objective: * Vitals: Assessment: Plan: * Treatment: * Billing Information: * Visit Code: * Procedure Codes: * Electronic signature of LENCHO LAYTON DPM on 07/12/2025 at 08:55 AM CDT Sign off status: Pending * Provider: ROCCO HoldenM Date: 0 12/14/2024 Generated for Brett patricio/Gibran/Jana on: 0 07/12/2025 08:55 AM CDT
--- OUTSIDE RECORDS SUMMARY | 2025-05-03 03:50 | XMS_ITS ---
Author Organization [facility] Address [address] [place], [place] [id number] Care Team Providers Care Supervisor Blood Donor Recruiters Name Role Phone LENCHO LAYTON Unavailable [phone] Papa Espinoza Unavailable Unavailable Allergies Allergen (clinical drug ingredient) Drug/Non Drug Allergy documented on EMR Reaction Allergy Type Onset Date Status Substance with penicillin structure and antibacterial mechanism of action (substance) Penicillins Unknown Drug Allergy 11/20/2013 active REASON FOR VISIT *General care Medications Medication SIG (Take, Route, Frequency, Duration) Notes Start Date End Date Status aspirin 81 MG Delayed Release Oral Tablet ORAL aspirin 81 MG Delayed Release Oral TabletOriginal Medicationaspirin 81 MG Delayed Release Oral Tablet *Reorder from [employer] for eRx and Interaction Alerts* 12/30/2014 Active Vital Signs Height 70.00 in 05/03/2025 Weight 240 lbs 05/03/2025 BMI 34.43 kg/m2 05/03/2025 Height-cm 177.80 cm 05/03/2025 Weight-kg 108.86 kg 05/03/2025 Encounters Encounter Location Date Provider Diagnosis [facility] [address] [place], [place] [id number] 05/03/2025 LENCHO LAYTON Fungal infection of nail B35.1 ; Pain in right toe(s) M79.674 ; Pain in left toe(s) M79.675 and Atherosclerosis of [place] arteries of extremities with intermittent claudication, bilateral legs I70.213 Assessments Encounter Date Diagnosis (ICD Code) Assessment Notes Treatment Notes Treatment Clinical Notes Section Notes 05/03/2025 Fungal infection of nail (ICD-10 - B35.1) Nails 1-5 Bilateral were debrided extensively with nail nippers and emery board, reducing length and girth to pink healthy tissue with any subungual debris and necrotic tissue removed 05/03/2025 Pain in right toe(s) (ICD-10 - M79.674) 05/03/2025 Pain in left toe(s) (ICD-10 - M79.675) 05/03/2025 Atherosclerosis of [place] arteries of extremities with intermittent claudication, bilateral legs (ICD-10 - I70.213) Plan Of Treatment Treatment Notes Assessment Notes Fungal infection of nail Nails 1-5 Bilat eral were debrided extensively with nail nippers and emery board, reducing length and girth to pink healthy tissue with any subungual debris and necrotic tissue removed Next Appt Details Follow Up: 9 weeks, Reason: Provider Name:LENCHO BARLOW, 09/06/2025 02:20:00 PM, [address], [address], [id number], Progress Notes * CLAUDIA NOBLE KDOB:[birth year] (74 yo M)Acc No.[id number]:05/03/2025 Patient: CLAUDIA MACHADO Provider: Martin Layton DPM :1950 A ge:74 Y S ex:Male Date:05/03/2025 Address:[facility] [place] [address] Subjective: * Chief Complaints: * 1 . *General care. * HPI: H PI: General care P atient presents to the office for at risk foot care. Patient states that their nails are thickened, elongated and painful. Patient states that it is aggravated by shoe gear. Onset is gradual. Patient denies being diabetic., Patient denies taking prescription blood thinners but does take a daily aspirin., Date last seen by Dr. Espinoza was September 2024. , Initials ars. * ROS: G eneral / Constitutional: Patient denies c hange in appetite, fatigue, chills, fever.? C ardiovascular: Chest pain d enies. N eurologic: Loss of use of extremity d enies. * Medical History: * Family History: F ather: PRN - Father: :: Arthritis,,known absent , :: Cancer,,known absent . M other: PRN - Mother: :: Heart Disease < 55 yrs,,known absent , :: Arthritis,,known absent . B rother: SIB - Brother: :: Heart Disease < 55 yrs,,known absent . * Social History: M igrated Social History: M igrated Social History: History of tobacco use : , Smoking Status : Former smoker , Alcohol intake :. * Medications: T aking aspirin 81 MG Delayed Release Oral Tablet ORAL , Notes to Pharmacist: aspirin 81 MG Delayed Release Oral TabletOriginal Medicationaspirin 81 MG Delayed Release Oral Tablet *Reorder from [employer] for eRx and Interaction Alerts*, Medication List reviewed and reconciled with the patient * Allergies: P enicillins: Allergy - Onset Date 11/20/2013. Objective: * Vitals: W t: 240 lbs, Wt-k.86 kg, Ht: 70.00 in, Ht-cm: 177.80 cm, BMI: 34.43 Index, Body Surface Area: 2.32. * Examination: P hysical Examination: Gen: T he patient is awake, alert, well developed, well groomed and well nourished. They are in no apparent distress. . Musc: F oot structure is normal bilateral. Muscle strength is 5/5 to all joints bilaterally. There is no pain on palpation. . Derm: T here is absent hair growth on bilateral feet. There are pigmentary changes of bilateral foot. The skin color is red. The skin texture is thin and shiny. Distal cooling noted in bilateral feet. Nails are thick, discolored, and dystrophic with subungual debris. They are painful to palpation. . Neuro: G rossly intact to light touch bilateral . Vasc: P osterior tibialis pulse 0/4 bilaterally. Dorsalis pedis pulse 0/4 bilaterally. No edema noted. Capillary fill time > 3 seconds to all digits. . Assessment: * Assessment: 1. F ungal infection of nail - B35.1 (Primary) 2 . P ain in right toe(s) - M79.674 3 . P ain in left toe(s) - M79.675 4 . A therosclerosis of [place] arteries of extremities with intermittent claudication, bilateral legs - I70.213 ? Plan: * Treatment: * Follow Up: 9 weeks * Billing Information: * Visit Code: 92370 Office Visit, Est Pt., Level 3. * Procedure Codes: * Electronic signature of LENCHO MARLEN LAYTON on 07/12/2025 at 08:55 AM CDT Sign off status: Pending * Provider: Martin Layton DPM Date: 0 05/03/2025 Generated for Brett patricio/Gibran/Jana on: 0 07/12/2025 08:55 AM CDT History and Physical Notes * HPI (History of Present Illness) Category Sub-Category Detail Notes Category Not es HPI General care Patient presents to the office for at risk foot care. Patient states that their nails are thickened, elongated and painful. Patient states that it is aggravated by shoe gear. Onset is gradual. Patient denies being diabetic., Patient denies taking prescription blood thinners but does take a daily aspirin., Date last seen by Dr. Espinoza was September 2024. , Initials ars Examination Category Sub-Category Detail Notes Category Not es Physical Examination Gen: The patient is awake, alert, well developed, well groomed and well nourished. They are in no apparent distress. Vasc: Posterior tibialis p ulse 0/4 bilaterally. Dorsalis pedis pulse 0/4 bilaterally. No edema noted. Capillary fill time > 3 seconds to all digits. Neuro: Grossly intact to li ght touch bilateral Musc: Foot structure is no rmal bilateral. Muscle strength is 5/5 to all joints bilaterally. There is no pain on palpation. Derm: There is absent hair growth on bilateral feet. There are pigmentary changes of bilateral foot. The skin color is red. The skin texture is thin and shiny. Distal cooling noted in bilateral feet. Nails are thick, discolored, and dystrophic with subungual debris. They are painful to palpation.
--- OUTSIDE RECORDS SUMMARY | 2025-07-05 04:50 | XMS_ITS ---
Author Organization [facility] Address [address] [place], [place] [id number] Care Team Providers Care Aeronautical Products Sales Engineer Name Role Phone LENCHO LAYTON Unavailable [phone] Papa Espinoza Unavailable Unavailable Allergies Allergen (clinical [...] MG Delayed Release Oral Tablet *Reorder from [employer] for eRx and Interaction Alerts* 12/30/2014 Active Vital Signs Height 70.00 in 07/05/2025 Height-cm 177.80 cm 07/05/2025 Encounters Encounter Location Date Provider Diagnosis [facility] [place] [address] [place], [place] [id number] 07/05/2025 LENCHO LAYTON Fungal infection of nail B35.1 ; Pain in right toe(s) M79.674 ; Pain in left toe(s) M79.675 and Atherosclerosis of [place] arteries of extremities with intermittent claudication, bilateral legs I70.213 Assessments Encounter Date Diagnosis (ICD Code) Assessment Notes Treatment Notes Treatment Clinical Notes Section Notes 07/05/2025 Fungal infection of nail (ICD-10 - B35.1) Nails 1-5 Bilateral were debrided extensively with nail nippers and emery board, reducing length and girth to pink healthy tissue with any subungual debris and necrotic tissue removed 07/05/2025 Pain in right toe(s) (ICD-10 - M79.674) 07/05/2025 Pain in left toe(s) (ICD-10 - M79.675) 07/05/2025 Atherosclerosis of grindstone arteries of extremities with intermittent claudication, bilateral legs (ICD-10 - I70.213) 07/05/2025 Other Preventing Falls: Care Instructions material was printed Plan Of Treatment Treatment Notes Assessment Notes Fungal infection of nail Nails 1-5 Bilat eral were debrided extensively with nail nippers and emery board, reducing length and girth to pink healthy tissue with any subungual debris and necrotic tissue removed Other Preventing Falls: Ca re Instructions material was printed Next Appt Details Follow Up: 9 weeks, Reason: Provider Name:LENCHO BARLOW, 09/06/2025 02:20:00 PM, [address], [address], [id number], Progress Notes * CLAUDIA NOBLE KDOB:[birth year] (74 yo M)Acc No.[id number]:07/05/2025 Patient: CLAUDIA MACHADO Provider: Martin Layton DPM :1950 A ge:74 Y S ex:Male Date:07/05/2025 Address:[facility] [place] [address] Subjective: * Chief Complaints: * 1 . [...] Date last seen by Dr. Espinoza was June 2025., Initials JMR. * ROS: G eneral / Constitutional: Patient denies c hange in appetite, fatigue, chills, fever.? C ardiovascular: Chest pain d enies. N eurologic: Loss of use of extremity d enies. * Medical History: M edical History Verified. * Family History: F ather: PRN - [...] MG Delayed Release Oral Tablet *Reorder from [employer] for eRx and Interaction Alerts*, Medication List reviewed and reconciled with the patient * Allergies: P enicillins: Allergy - Onset Date 11/20/2013. Objective: * Vitals: H t: 70.00 in, Ht-cm: 177.80 cm. * Examination: P hysical Examination: Gen: T [...] - M79.675 4 . A therosclerosis of grindstone arteries of extremities with intermittent claudication, bilateral legs - I70.213 ? Plan: * Treatment: 2. O thers Notes: Preventing Falls: Care Instructions material was printed * Immunizations: Immunization record has been reviewed and updated. * Preventive Medicine: Screenings: F all risk screening Fall Risk Assessment: O ne fall without injury in the past year Plan of Care: D ocumented Type of fall plan of care: B alance, strength and gait training or instruction provided Have you had two or more falls in the past year? N o Have you had any falls with injury in the past year? N o * Follow Up: 9 weeks * Billing Information: * Visit Code: * Procedure Codes: * Electronic signature of LENCHO LAYTON DPM on 07/12/2025 at 08:55 AM CDT Sign off status: Pending * Provider: Martin Layton DPM Date: 0 07/05/2025 Generated for Brett Gilman/Jana on: 0 07/12/2025 08:55 AM CDT History [...] Date last seen by Dr. Espinoza was June 2025., Initials JMR Examination Category Sub-Category Detail Notes Category Not [...]
--- OUTSIDE RECORDS SUMMARY | 2025-07-12 08:55 | XMS_ITS | Encounter Summary ---
Author Organization [facility] Address [address] [place] [address] Phone Care Team Providers Care Violin Mechanic Name Role Phone Papa Espinoza DO Primary Care Provider [phone] Papa Espinoza DO Primary Care Provider [phone] Pranav Wang MD Unavailable Encounter Details Date Type Department Care Team (Latest Contact Info) Description 09/08/2024 Orders Only [facility] Scanning, Provider Social History Tobacco Use Types Packs/Day Years Used Date Smoking Tobacco: Former Cigarettes 1 18 1 964 - 1982 Smokeless Tobacco: Never Alcohol Use Standard Drinks/Week Comments Defer 0 (1 standard drink = 0.6 oz pur e alcohol) AUDIT-C Answer Date Recorded Q1: How often do you have a drink containing alc ohol? Never 04/28/2021 Average Number of Drinks Not on file 021 Frequency of Binge Drinking Not on file 04/02 Sex and Gender Information Value Date Recorded Sex Assigned at Not on file Legal Sex Male 12:00 AM BOOK EDITOR Gender Identity Not on file Sexual Orientation Straight 10/22/2020 10 :28 AM BOOK EDITOR documented as of this encounter Progress Notes * Brandie Bettencourt RN - 09/08/2024 11:59 PM CST OV 09/19 labs to include lipids as FYI EDITOR * Marco Antonio Kay MD - 09/08/2024 11:59 PM CST LDL 63. This is good. EDITOR * Brandie Bettencourt RN - 09/08/2024 11:59 PM CST LMOR labs received - LDL 63 to continue all meds as prescribed. And to call for questions or concerns EDITOR documented in this encounter Plan of Treatment Not on file documented as of this encounter Procedures Procedure Name Priority Date/Time Associated Diagnosis Comments SCAN - LABS 09/08/2024 documented in this encounter Results * SCAN - LABS (09/08/2024) us Provider Scanning Edited Result - Final documented in this encounter Visit Diagnoses Not on filedocumented in this encounter Care Teams Violin Mechanic Relationship Specialty Start Date End Date Papa Espinoza DO PCP - General Internal Medicine 03/02/24 09/18/24 Papa Espinoza DO PCP - General Internal Medicine 09/19/24 Pranav Wang MD [address] [place] [address] Consulting Physician Pain Management 12/29/24 documented as of this encounter
--- OUTSIDE RECORDS SUMMARY | 2025-07-12 08:55 | XMS_ITS | Patient Health Record ---
Author Organization [facility] Address [address] [place], [place] [id number] Care Team Providers Care Cleaning Professional Name Role Phone LENCHO STANLEY Unavailable [phone] Papa Espinoza Unavailable Unavailable Allergies Allergen (clinical drug ingredient) Drug/Non Drug Allergy documented on EMR Reaction Allergy Type Onset Date Status Substance with penicillin structure and antibacterial mechanism of action (substance) Penicillins Unknown Drug Allergy 11/20/2013 active Reason For Referral No Information Medications Medication SIG (Take, Route, Frequency, Duration) Notes Start Date End Date Status aspirin 81 MG Delayed Release Oral Tablet ORAL aspirin 81 MG Delayed Release Oral TabletOriginal Medicationaspirin 81 MG Delayed Release Oral Tablet *Reorder from [employer] for eRx and Interaction Alerts* 12/30/2014 Active Immunizations Vaccine Route Administration Date Status Comme nts Influenza (split), 3 yrs and above Unknown 09/05/2013 A dministered Influenza, high dose seasonal Unknown 10/11/2016 Admini stered Influenza, high dose seasonal Unknown 08/04/2023 Admini stered Influenza, high-dose seasona l, quadrivalent, preservative free >65 yrs Unknown 10/11/2016 Administered Influenza, high-dose seasona l, quadrivalent, preservative free >65 yrs Unknown 08/08/2020 Administered Influenza, seasonal, injecta ble, preservative free, 6-35 months Unknown 10/01/2016 Administered Influenza, unspecified formulation Unknown 10/20/2017 A dministered Influenza, unspecified formulation Unknown 07/26/2018 A dministered Influenza, unspecified formulation Unknown 08/01/2019 A dministered Pneumococcal polysaccharide PPV23 Unknown 08/08/2020 Ad ministered Pneumococcal polysaccharide PPV23 Unknown 08/05/2022 Ad ministered Vital Signs Height-cm 177.80 cm 07/05/2025 Weight-kg 108.86 kg 05/03/2025 Height 70.00 in 07/05/2025 Weight 240 lbs 05/03/2025 BMI 34.43 kg/m2 05/03/2025 Encounters Encounter Location Date Provider Diagnosis [facility] [address] [place] [address] [id number] 05/03/2025 LENCHO WHITTENCAIN Fungal infection of nail B35.1 ; Pain in right toe(s) M79.674 ; Pain in left toe(s) M79.675 and Atherosclerosis of [place] arteries of extremities with intermittent claudication, bilateral legs I70.213 [facility] [address] [place] [address] [id number] 07/05/2025 LENCHO JADEN Fungal infection of nail B35.1 ; Pain in right toe(s) M79.674 ; Pain in left toe(s) M79.675 and Atherosclerosis of [place] arteries of extremities with intermittent claudication, bilateral legs I70.213 [facility] [address] [place] [address] [id number] 07/20/2024 LENCHO WHITTENBURG Fungal infection of nail B35.1 ; Pain in right toe(s) M79.674 ; Pain in left toe(s) M79.675 and Atherosclerosis of [place] arteries of extremities with intermittent claudication, bilateral legs I70.213 [facility] [address] [place] [address] [id number] 09/21/2024 LENCHO WHITTENBURG Fungal infection of nail B35.1 ; Pain in right toe(s) M79.674 ; Pain in left toe(s) M79.675 and Atherosclerosis of [place] arteries of extremities with intermittent claudication, bilateral legs I70.213 [facility] [address] [place] [address] [id number] 12/28/2024 LENCHO AMBERBURG Fungal infection of nail B35.1 ; Pain in right toe(s) M79.674 ; Pain in left toe(s) M79.675 and Atherosclerosis of [place] arteries of extremities with intermittent claudication, bilateral legs I70.213 [facility] [place] [address] [place], [place] [id number] 03/01/2025 LENCHO STANLEY Fungal infection of nail B35.1 ; Pain in right toe(s) M79.674 ; Pain in left toe(s) M79.675 and Atherosclerosis of [place] arteries of extremities with intermittent claudication, bilateral legs I70.213 Assessments Encounter Date Diagnosis (ICD Code) Assessment Notes Treatment Notes Treatment Clinical Notes Section Notes 07/20/2024 Pain in right toe(s) (ICD-10 - M79.674) 07/20/2024 Fungal infection of nail (ICD-10 - B35.1) Nails 1-5 Bilateral were debrided extensively with nail nippers and emery board, reducing length and girth to pink healthy tissue with any subungual debris and necrotic tissue removed 09/21/2024 Fungal infection of nail (ICD-10 - B35.1) Nails 1-5 Bilateral were debrided extensively with nail nippers and emery board, reducing length and girth to pink healthy tissue with any subungual debris and necrotic tissue removed 12/28/2024 Fungal infection of nail (ICD-10 - B35.1) Nails 1-5 Bilateral were debrided extensively with nail nippers and emery board, reducing length and girth to pink healthy tissue with any subungual debris and necrotic tissue removed 03/01/2025 Fungal infection of nail (ICD-10 - B35.1) Nails 1-5 Bilateral were debrided extensively with nail nippers and emery board, reducing length and girth to pink healthy tissue with any subungual debris and necrotic tissue removed 05/03/2025 Fungal infection of nail (ICD-10 - B35.1) Nails 1-5 Bilateral were debrided extensively with nail nippers and emery board, reducing length and girth to pink healthy tissue with any subungual debris and necrotic tissue removed 07/05/2025 Fungal infection of nail (ICD-10 - B35.1) Nails 1-5 Bilateral were debrided extensively with nail nippers and emery board, reducing length and girth to pink healthy tissue with any subungual debris and necrotic tissue removed 07/05/2025 Pain in right toe(s) (ICD-10 - M79.674) 05/03/2025 Pain in right toe(s) (ICD-10 - M79.674) 03/01/2025 Pain in right toe(s) (ICD-10 - M79.674) 12/28/2024 Pain in right toe(s) (ICD-10 - M79.674) 09/21/2024 Pain in right toe(s) (ICD-10 - M79.674) 07/20/2024 Pain in left toe(s) (ICD-10 - M79.675) 07/20/2024 Atherosclerosis of [place] arteries of extremities with intermittent claudication, bilateral legs (ICD-10 - I70.213) 09/21/2024 Pain in left toe(s) (ICD-10 - M79.675) 12/28/2024 Pain in left toe(s) (ICD-10 - M79.675) 03/01/2025 Pain in left toe(s) (ICD-10 - M79.675) 05/03/2025 Pain in left toe(s) (ICD-10 - M79.675) 07/05/2025 Pain in left toe(s) (ICD-10 - M79.675) 07/05/2025 Atherosclerosis of [place] arteries of extremities with intermittent claudication, bilateral legs (ICD-10 - I70.213) 05/03/2025 Atherosclerosis of [place] arteries of extremities with intermittent claudication, bilateral legs (ICD-10 - I70.213) 03/01/2025 Atherosclerosis of [place] arteries of extremities with intermittent claudication, bilateral legs (ICD-10 - I70.213) 12/28/2024 Atherosclerosis of [place] arteries of extremities with intermittent claudication, bilateral legs (ICD-10 - I70.213) 09/21/2024 Atherosclerosis of [place] arteries of extremities with intermittent claudication, bilateral legs (ICD-10 - I70.213) 07/05/2025 Other Preventing Falls: Care Instructions material was printed Plan Of Treatment Next Appt Details Provider Name:LENCHO BARLOW, 09/06/2025 02:20:00 PM, [address], [facility] [place], [place], [place], [id number], Insurance Providers Payer Name Payer Address Payer Phone Subscriber Number Group Number Insured Name Patient Relationship to Insured Coverage Start Date Coverage End Date [facility] [address] [address] [place] [address] [id number] CLAUDIA GALE Self - patient is the insured
--- OUTSIDE RECORDS SUMMARY | 2025-07-12 08:55 | XMS_ITS | Encounter Summary ---
Author Organization [facility] Address [facility] [place] [address] Care Team Providers Care Securities Research Analyst Name Role Phone Agustin Tamayo MD Primary Care Provider [phone] Encounter Details Date Type Department Care Team (Late st Contact Info) Description 09/04/2017 [place] [address] , Generic ConversionMD Social History Tobacco Use Types Packs/Day Years Used Date Smoking Tobacco: Never Assessed Sex and Gender Information Value Date Recorded Sex Assigned at Not on file Legal Sex Male 5:39 PM CDT Gender Identity Not on file Sexual Orientation Not on file documented as of this encounter Plan of Treatment Not on file documented as of this encounter Visit Diagnoses Not on filedocumented in this encounter Care Teams Securities Research Analyst Relationship Specialty Start Date End Date Agustin Tamayo MD [address] [place] [address] PCP - General 06/10/15 documented as of this encounter
--- OUTSIDE RECORDS SUMMARY | 2025-07-12 08:55 | XMS_ITS | Encounter Summary ---
Author Organization [facility] Address [address] [place] [address] Phone Care Team Providers Care Program Counselor Name Role Phone Agustin Tamayo MD Primary Care Provider [phone] Unknown, Notinfile Primary Care Provider Unavail able Agustin Tamayo MD Primary Care Provider [phone] Papa Espinoza DO Primary Care Provider [phone] Papa Espinoza DO Primary Care Provider [phone] Pranav Wang MD Unavailable Encounter Details Date Type Department Care Team (Latest Contact Info) Description 05/13/2006 Orders Only [facility] Scanning, Provider Social History Tobacco Use Types Packs/Day Years Used Date Smoking Tobacco: Never Assessed Sex and Gender Information Value Date Recorded Sex Assigned at Not on file Legal Sex Male 12:00 AM TOOL TROUBLE SHOOTER Gender Identity Not on file Sexual Orientation Straight 10/22/2020 10 :28 AM TOOL TROUBLE SHOOTER documented as of this encounter Plan of Treatment Not on file documented as of this encounter Procedures Procedure Name Priority Date/Time Associated Diagnosis Comments CARDIOLOGY DOCUMENT SCAN 05/13/2006 documented in this encounter Results * CARDIOLOGY DOCUMENT SCAN (05/13/2006) Anatomical Region Laterality Modality Other us Provider Scanning CV CARDIAC SERVICES PROCEDURES Final Result documented in this encounter Visit Diagnoses Not on filedocumented in this encounter Care Teams Program Counselor Relationship Specialty Start Date End Date Agustin Tamayo MD [address] [place] [address] PCP - General 08/31/17 10/13/17 Unknown, Notinfile PCP - General 10/14/17 10/27/17 Agustin Tamayo MD [address] [place] [address] PCP - General 10/28/17 03/01/24 Papa Espinoza DO PCP - General Internal Medicine 03/02/24 09/18/24 Papa Espinoza DO PCP - General Internal Medicine 09/19/24 Pranav Wang MD [address] [facility] [address] [place] [address] Consulting Physician Pain Management 12/29/24 documented as of this encounter
--- OUTSIDE RECORDS SUMMARY | 2025-07-12 08:55 | XMS_ITS | Clinical Summary ---
Author Organization [facility] Address [facility] [place] [address] Care Team Providers Care Spinning Bath Person Name Role Phone Agustin Tamayo MD Primary Care Provider [phone] Social History Tobacco Use Types Packs/Day Years Used Date Smoking Tobacco: Never Assessed Sex and Gender Information Value Date Recorded Sex Assigned at Not on file Legal Sex Male 5:39 PM CDT Gender Identity Not on file Sexual Orientation Not on file Plan of Treatment Health Maintenance Due Date Last Done Comments Hepatitis C 1966 DTaP, Tdap and Td Vaccines ( 1 - Tdap) 1967 Pneumococcal Vaccine: 50+ Ye ars (1 of 1 - PCV) 1998 Zoster Vaccines (1 of 2) 1998 RSV Immunization or 60+ Years (1 - 1-dose 75+ series) 2023 COVID-19 Vaccine ( - 2023-2 5 season) 2025 Meningococcal B Vaccine Aged Out No l onger eligible based on patient's age to complete this topic Meningococcal Vaccine Aged Out No dirk sam eligible based on patient's age to complete this topic RSV Immunizations Under 20 Months Aged Out No longer eligible based on patient's age to complete this topic Care Teams Spinning Bath Person Relationship Specialty Start Date End Date Agustin Tamayo MD [address] [place] [address] PCP - General 06/10/15
--- OUTSIDE RECORDS SUMMARY | 2025-07-12 08:55 | XMS_ITS | Clinical Summary ---
Author Organization [facility] Address [address] [place] [id number] Care Team Providers Care Gold Plater Name Role Phone AlexisDeepPapamichelle VILLAR Primary Care Provider [phone] Pranav Wang MD Unavailable Allergies Active Allergy Reactions Criticality Noted Date Comments Penicillins Other (See comments) Low Reaction: Medications nitroglycerin (NITROSTAT) 0.4 mg SL tabletIndicatio ns:acute episode of anginal pain Place 1 tablet (0.4 mg total) under the tongue every 5 (five) minutes as needed 3 8 Active simvastatin (ZOCOR) 40 mg tabletIndicatio ns:hyperlipidem ia Take 1 tablet (40 mg total) by mouth nightly 0 Active metoprolol tartrate (LOPRESSOR) 25 mg immediate release tabletIndicatio ns:hypertension Take 1 tablet (25 mg total) by mouth 2 (two) times a day 0 Active zinc 50 mg tabletIndicatio ns:supplement Take 1 tablet by mouth every morning Active cholecalciferol (VITAMIN D-3) 2000 unit capsuleIndicati ons:Prevention of Vitamin D Deficiency Take 1 capsule (2,000 Units total) by mouth every morning Active kzqocupj-oty-BN -lycopen-lutein 300-600-300 mcg tabletIndicatio ns:Vitamin Deficiency Prevention Take 1 tablet by mouth every morning Active acetaminophen 500 mg capsule Take 2 capsules (1,000 mg total) by mouth every 6 (six) hours 30 tablet [address] (PROTONIX) 40 mg EC tablet Take 1 tablet (40 mg total) by mouth every morning 2 Active aspirin 81 mg enteric coated tablet 5 Active multivitamin with minerals tablet Take 1 tablet by mouth daily Active chlorhexidine (PERIDEX) 0.12 % solution RINSE WITH 15ML BY MOUTH TWICE DAILY AFTER BREAKFAST AND BEFORE BEDTIME 3 Active melatonin 5 mg tablet Take 1 tablet (5 mg total) by mouth nightly Active gabapentin (NEURONTIN) 300 mg capsuleIndicati ons:Numbness of left foot TAKE 1 CAPSULE(300 MG) BY MOUTH EVERY NIGHT 30 capsule 2 5 Active tiZANidine (ZANAFLEX) 4 mg tabletIndicatio ns:Muscle Spasm Take 1 tablet (4 mg total) by mouth every 6 (six) hours as needed for muscle spasms 30 tablet 5 08/08/20 25 Active tiZANidine (ZANAFLEX) 4 mg tablet Take 1 tablet (4 mg total) by mouth every 6 (six) hours as needed for muscle spasms 30 tablet 5 07/09/20 25 Discontinu ed(Reorder ) Active Problems Problem Noted Date Diagnosed Date Coronary artery disease invo lving [place] coronary artery of [place] heart without angina pectoris 08/17/2023 Abdominal aortic aneurysm (AAA) without rupture 07/23/2022 Hypercholesteremia 07/23/2022 Spinal stenosis of lumbar region 01/27/2021 Overview (01/27/2021): Added automatically from request for surgery [id number] Spondylolysis 10/14/2017 Back pain 10/13/2017 Knee pain 07/28/2011 Osteoarthritis of knee 04/10/2009 Old myocardial infarction Overview (07/24/2022): History of myocardial infarction - (Added by TW Conv) Encounters Date Type Department Care Team Description 06/27/2025 7:27 AM CDT - 06/27/2025 11:59 PM CDT Hospital Encounter [facility] [place] [address] Pranav Wang MD Bulge of lumbar disc without myelopathy; Neural foraminal stenosis of lumbar spine; Radiculopathy, lumbar region Discharge Disposition: Discharge to home or self care 06/05/2025 8:54 AM CDT - 06/05/2025 11:59 PM CDT Hospital Encounter [facility] [address] [place] [address] Pranav Wang MD Bulge of lumbar disc without myelopathy (Primary Dx); Neural foraminal stenosis of lumbar spine; Radiculopathy, lumbar region; Postlaminectomy syndrome Discharge Disposition: Discharge to home or self care 05/11/2025 7:26 AM CDT - 05/11/2025 11:59 PM CDT Hospital Encounter [facility] [address] [place] [address] Pranav Wang MD Bulge of lumbar disc without myelopathy; Neural foraminal stenosis of lumbar spine; Radiculopathy, lumbar region Discharge Disposition: Discharge to home or self care 04/26/2025 7:53 AM CDT - 04/26/2025 11:59 PM CDT Hospital Encounter [facility] [address] [place] [address] Pranav Wang MD Bulge of lumbar disc without myelopathy (Primary Dx); Neural foraminal stenosis of lumbar spine; Radiculopathy, lumbar region; Postlaminectomy syndrome Discharge Disposition: Discharge to home or self care from Last 3 Months Immunizations Immunization Administration Dates Next Due Influenza Virus Vaccine Trivalent 10/11/2016 Influenza, Quadrivalent, Hig h Dose, Preservative Free, Intrr 08/08/2020 Influenza, Trivalent, Adjuva nted, Intramuscular 07/25/2018 Influenza, Trivalent, High D ose, Split, Preservative Free, Intramuscular 10/11/2016 Influenza, Trivalent, IM (MDV) 09/05/2013 Influenza, Trivalent, Preser vative Free, Intramuscular 10/01/2016 Influenza, Unspecified 08/01/2019,07/26/2018, Pneumococcal Polysaccharide PPV23 08/08/2020 Surgical History Surgery Date Site/Laterality Comments KNEE SURGERY Knee Surgery - (Added by TW Conv) LAMINECTOMY 11/01/2021 - 10/31/2022 Medical History Medical History Date Comments Old myocardial infarction Histor y of myocardial infarction - (Added by TW Conv) Anemia Arthritis Obesity Aneurysm Cervical disc disease Cervical stenosis (uterine cervix) Chest pain Hyperthyroidism Disc disorder of lumbar region Lumbar stenosis Family History Medical History Relation Name Comments Heart disease Brother Arthritis Father Cancer Father Heart disease Maternal Grandfather Stroke Maternal Grandmother Arthritis Mother Family history of arthritis - (Added by TW Conv) Gout Mother Family history of gout - (Added by TW Conv) Heart disease Mother Kidney disease Mother Family histor y of kidney disease - (Added by TW Conv) Heart disease Other 1 Family history of cardiac disorder - (Added by TW Conv) Cancer Other 2 Family history of malignant neoplasm - (Added by Conv) Heart attack Son Relation Name Status Comments Brother Father Maternal Grandfather Maternal Grandmother Mother Other 1 Other 2 Son Alive Social History Tobacco Use Types Packs/Day Years Used Date Smoking Tobacco: Former Cigarettes 1 18 1 - 1981 Smokeless Tobacco: Never Tobacco Cessation:Counseling Given: Not Answered Alcohol Use Standard Drinks/Week Comments Defer 0 (1 standard drink = 0.6 oz pur e alcohol) AUDIT-C Answer Date Recorded Q1: How often do you have a drink containing alc ohol? 2-3 times a week 12/08/2024 Q2: How many drinks containi ng alcohol do you have on a typical day when you are drinking? 1 or 2 12/08/2024 Q3: How often do you have si x or more drinks on one occasion? Never 12/08/2024 Sex and Gender Information Value Date Recorded Sex Assigned at Not on file Legal Sex Male 12:00 AM PHYSICAL THERAPY AIDES TEACHER Gender Identity Not on file Sexual Orientation Straight 10/22/2020 10 :28 AM PHYSICAL THERAPY AIDES TEACHER Obstetrics History Last Filed Vital Signs Vital Sign Reading Time Taken Comments Blood Pressure 115/73 06/27/2025 8:34 AM CDT Pulse 72 06/27/2025 8:34 AM CDT Temperature 36.6 C (97.8 F) 06/27/2025 7:35 AM CDT Respiratory Rate 18 06/27/2025 8:34 AM CDT Oxygen Saturation 91% 06/27/2025 8:34 AM CDT Inhaled Oxygen Concentration - - Weight 115.8 kg (255 lb 3.2 oz) 06/05/2025 9:01 AM CDT Height 177.8 cm (5' 10) 06/05/2025 9:01 AM CDT Body Mass Index 36.62 06/05/2025 9:01 AM CDT Plan of Treatment Health Maintenance Due Date Last Done Comments Depression Screening 1950 Hepatitis C Screening 1950 Hepatitis B Screening 1966 Well Visit 65+ 2013 Pneumococcal vaccine 65+ (2 of 2 - PCV) 08/08/2021 08/08/2020 Fall Risk Assessment 03/01/2022 03/01/2021 Zoster Vaccine (2 of 3) 08/10/2023 06/15/2023 Influenza Vaccine (#1) 2025 0, 08/01/2019, 07/26/2018, Additional history exists DTaP/Tdap/Td Vaccine (2 - Td or Tdap) 04/12/2031 04/12/2021 Abdominal Aortic Aneurysm (A AA) Screen Completed 09/19/2024, 09/19/2024, 09/19/2024, Additional history exists Procedures Procedure Name Priority Date/Time Associated Diagnosis Comments PAIN MGMT IMAGING LUMBAR/SACRAL SELECTIVE NERVE ROOT INJ (TFE) BILATERAL Schedule Routine, Read Routine (OP Routine) 06/27/2025 8:14 AM CDT Bulge of lumbar disc without myelopathy Neural foraminal stenosis of lumbar spine Radiculopathy, lumbar region POCT GLUCOSE DEVICE Routine 06/27/2025 7:37 AM CDT PAIN MGMT IMAGING LUMBAR/SACRAL SELECTIVE NERVE ROOT INJ (TFE) LEFT Schedule Routine, Read Routine (OP Routine) 05/11/2025 8:12 AM CDT Bulge of lumbar disc without myelopathy Neural foraminal stenosis of lumbar spine Radiculopathy, lumbar region POCT GLUCOSE DEVICE Routine 05/11/2025 7:39 AM CDT US ABDOMINAL AORTA Schedule Routine, Read Routine (OP Routine) 09/19/2024 12:59 PM PHYSICAL THERAPY AIDES TEACHER Abdominal aortic aneurysm (AAA) without rupture, unspecified part from Last 3 Months or Most Recently Relevant to Health Maintenance Results * Imaging Lumbar/Sacral Selective Nerve Root INJ (TFE) Bilateral (69495) (06/27/2025 8:14 AM CDT) Narrative RAD_[email or web address]_MHE - 06/27/2025 3:12 PM CDT The images from this study are not interpreted by Radiology. Please refer to the physician's procedure / OR operative note. Pranav Wang MD [facility] [place] [facility] PROCEDURES Final R esult Performing Organization Address [facility] Co de Phone Number [email or web address] * POCT glucose (06/27/2025 7:37 AM CDT) Glucose, POC 156 70 - 199 mg/dL Blood 06/27/2025 7:37 AM CDT 06/27/2025 7:37 AM CDT Pranav Wang MD LAB POCT ORDERABLES - DEVICE Fin al Result Performing Organization Address [facility] Phone Number [facility] [address] [facility] Department [place] [address] * Imaging Lumbar/Sacral Selective Nerve Root INJ (TFE) Left (47200) (05/11/2025 8:12 AM CDT) Narrative RAD_CLARIO_MHB_MHE - 05/11/2025 8:23 AM CDT The images from this study are not interpreted by Radiology. Please refer to the physician's procedure / OR operative note. us Pranav Wang MD IMG PAIN MGMT PROCEDURES Final R esult Performing Organization Address [facility] Co de Phone Number [email or web address] * POCT glucose (05/11/2025 7:39 AM CDT) Glucose, POC 126 70 - 199 mg/dL Blood 05/11/2025 7:39 AM CDT 05/11/2025 7:39 AM CDT Pranav Wang MD LAB POCT ORDERABLES - DEVICE Fin al Result [facility] Department [place] [address] * US Abdominal Aorta (09/19/2024 12:59 PM PHYSICAL THERAPY AIDES TEACHER) Anatomical Region Laterality Modality Abdomen N/A Ultrasound 09/19/2024 1:09 PM PHYSICAL THERAPY AIDES TEACHER Impressions 09/19/2024 1:09 PM PHYSICAL THERAPY AIDES TEACHER 1. 3.2 cm infrarenal abdominal aortic aneurysm. Electronically signed by: Zafar Kevin M.D. Narrative 09/19/2024 1:09 PM PHYSICAL THERAPY AIDES TEACHER EXAMINATION: AORTA SONOGRAM HISTORY: Follow-up abdominal aortic aneurysm. COMPARISON: None. Aneurysm apparently documented on prior outside examinations. FINDINGS: Aorta: There is a small infrarenal abdominal aortic aneurysm. The aneurysm measures 3.2 cm in its greatest axial dimension. Iliac arteries: The proximal right common iliac artery measures 1.4 cm and the left 1.4 cm in greatest axial dimension. Procedure Note Zafar Kevin MD - 09/19/2024 EXAMINATION: AORTA SONOGRAM HISTORY: Follow-up abdominal aortic aneurysm. COMPARISON: None. Aneurysm apparently documented on prior outside examinations. FINDINGS: Aorta: There is a small infrarenal abdominal aortic aneurysm. The aneurysm measures 3.2 cm in its greatest axial dimension. Iliac arteries: The proximal right common iliac artery measures 1.4 cm and the left 1.4 cm in greatest axial dimension. IMPRESSION: 1. 3.2 cm infrarenal abdominal aortic aneurysm. Electronically signed by: Zafar Kevin M.D. Marco Antonio Kay MD [facility] PROCEDURES Dulce Maria l Result from Last 3 Months or Most Recently Relevant to Health Maintenance Insurance [employer] [facility] Address: [id number] [place] [id number] [employer] [facility] Address: [address] [address] [place] [address] [employer] [facility] Address: [address] [address] [place] [address] Advance Directives For more information, please contact: [phone] * Full Code (Latest Code Status on File) Date Activated Date Inactivated Comments 02/27/2021 9:22 PM 03/01/2021 6:49 PM * Full Code Date Activated Date Inactivated Comments 07/16/2020 9:36 AM 07/16/2020 1:36 PM Care Teams Gold Plater Relationship Specialty Start Date End Date Papa Espinoza DO PCP - General Internal Medicine 09/19/24 Pranav Wang MD [address] [place] [address] [place] [id number] Consulting Physician Pain Management 12/29/24
--- OUTSIDE RECORDS SUMMARY | 2025-07-12 08:56 | XMS_ITS | Encounter Summary ---
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 OF 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 Gender Identity Not on file Sexual Orientation Straight 10/22/2020 10 :28 AM DIRECTOR OF 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 documented as of this encounter Plan of Treatment Not on file documented as of this encounter Procedures Procedure Name Priority Date/Time Associated Diagnosis Comments CARDIOLOGY DOCUMENT SCAN 09/30/2022 documented in this encounter Results * CARDIOLOGY DOCUMENT SCAN (09/30/2022) Anatomical Region Laterality Modality Other us Provider Scanning [facility] CARDIAC SERVICES PROCEDURES Edited Result - Final documented in this encounter Visit Diagnoses Not on filedocumented in this encounter Care Teams Client Sales And Service Officer Relationship Specialty Start Date End Date Agustin Tamayo MD [address] [facility] [address] [place] [address] PCP - General 10/28/17 03/01/24 Papa Espinoza DO [address] [facility] [address] [place] [address] PCP - General Internal Medicine 03/02/24 09/18/24 Papa Espinoza DO [address] [facility] [address] [place] [address] PCP - General Internal Medicine 09/19/24 Pranav Wang MD [address] [facility] [facility] [address] [address] [place] [address] [place] [id number] Consulting Physician Pain Management 12/29/24 documented as of this encounter
[2025-07-12 10:11] LABS: Hemoglobin A1C 6.2 % (<5.7)
[2025-07-12 10:17] LABS: Alanine Aminotransferase 38 U/L (6-50); Albumin Level 4.2 g/dL (3.5-5.1); Alkaline Phosphatase 49 U/L (38-126); Anion Gap 6 mmol/L (4-12); Aspartate Amino Transferase 42 U/L (17-59); Bilirubin,Total 0.7 mg/dL (0.2-1.3); Blood Urea Nitrogen 21 mg/dL (9-20); Calcium 8.8 mg/dL (8.4-10.2); Carbon Dioxide 30 mmol/L (22-30); Chloride 103 mmol/L (98-107); Cholesterol 146 mg/dL (0-200); Estimated Glomerular Filt Rate > 60; Glucose 125 mg/dL (65-110); HDL Direct 42 mg/dL; Potassium 4.6 mmol/L (3.4-5.0); Sodium 139 mmol/L (137-145); Total Protein 6.9 g/dL (6.3-8.2); Triglycerides 128 mg/dL (<150)
[2025-07-12 10:52] LABS: Prostate Specific Antigen 0.4 ng/mL (< OR = 4.0)
== END 2025-07-12 08:32 | disposition home or self-care (01) ==
PROVIDERS: PCP Internal Medicine; Visit Provider Internal Medicine
DX: Z12.5 Encounter for screening for malignant neoplasm of prostate (principal); R73.9 Hyperglycemia, unspecified; E78.5 Hyperlipidemia, unspecified; I25.2 Old myocardial infarction
CPT/HCPCS: 36415; 80053; 80061; 83036; 84153; G0103